=== PATIENT | female | born 1995 | race Caucasian/White ===

== ENCOUNTER 2025-07-23 22:41 | Emergency (ER) | payer OTHER ==
[2025-07-23 22:49] VITALS: TEMP 98.2; BMI 33.4
[2025-07-23 23:52] LABS: ABSOLUTE IMMATURE GRANULOCYTES 0.01 x10^3/uL (0.0-0.031); BASOPHILS # 0.02 x10^3/uL (0.01-0.08); EOSINOPHIL % 1.1 % (0.7-5.8); EOSINOPHILS # 0.06 x10^3/uL (0.04-0.36); MCHC 31.9 g/dl (32.2-35.5); MEAN CELL VOLUME 84.1 fl (79.4-94.8); MEAN PLT VOLUME 10.9 fl (9.4-12.3); MONOCYTE # 0.65 x10^3/uL (0.24-0.86); MONOCYTE % 11.5 % (4.7-12.5); RDW 14.2 % (12.1-16.8)
[2025-07-24 00:13] LABS: GLUCOSE,RANDOM 104.0 mg/dL (74-106); TOT PROT 6.5 g/dl (6.4-8.2)
[2025-07-24 00:14] LABS: CO2 24.0 mmol/L (21-32)
[2025-07-24 00:16] LABS: ALK PHOS 61.0 U/L (40-150)
[2025-07-24 00:18] LABS: CREATININE 0.56 mg/dL (0.55-1.3); SGOT/AST 18.0 U/L (5-34); SGPT/ALT 14.0 U/L (0-55)
[2025-07-24 00:37] LABS: URINE APPEARANCE CLEAR; URINE BILIRUBIN NEGATIVE (NEGATIVE); URINE COLOR YELLOW; URINE GLUCOSE (UA) NEGATIVE (NEGATIVE); URINE KETONE NEGATIVE (NEGATIVE)
[2025-07-24 00:38] LABS: URINE NITRITE NEGATIVE (NEGATIVE); URINE PROTEIN NEGATIVE (NEGATIVE); URINE UROBILINOGEN 1.0 mg/dL (0.2-1.0)
[2025-07-24 00:39] LABS: URINE LEUK ESTERASE NEGATIVE (NEGATIVE)
[2025-07-24 01:56] VITALS: BP 142/85; PULSE 97; RESP 20
== END 2025-07-24 02:01 | disposition home or self-care (01) ==
LOC: JER 22:41
DX: O20.9 Hemorrhage in early pregnancy, unspecified (principal); Z3A.01 Less than 8 weeks gestation of pregnancy
CPT/HCPCS: 36415; 76817-TC; 80053; 81003; 84702; 85025; 86850; 86900; 86901; 87086; 99284-25